=== PATIENT | female | born 1965 | race Caucasian/White ===

== ENCOUNTER 2019-05-17 17:26 | Outpatient (CLI) | payer OTHER, SELFPAY ==
--- NOTE | ~2019-05-17 | XR_ITS ---
EXAMINATION: XR chest 2V EXAM DATE: 05/17/2019 17:43 INDICATION: Bronchitis. Anterior chest pain. TECHNIQUE: Frontal and lateral projections of the chest obtained and reviewed. Comparison is made to prior examination from 02/05/2013. FINDINGS: The lungs are clear. There are no pleural effusions. The cardiomediastinal silhouette is within normal limits. There is no pneumothorax suspected. The bones and soft tissues are unremarkab le. IMPRESSION: No acute cardiopulmonary findings. Reviewed, dictated and finalized at location A.
== END 2019-05-17 17:27 | disposition home or self-care (01) ==
PROVIDERS: PCP Internal Medicine; Visit Provider Internal Medicine
DX: J40 Bronchitis, not specified as acute or chronic (principal)
CPT/HCPCS: 71046

== ENCOUNTER 2020-02-15 07:35 | Outpatient (CLI) | payer OTHER, SELFPAY ==
--- NOTE | ~2020-02-15 | DEXA_ITS ---
Bone Density Report Name: uYdi Valdivia Age: 54 Sex: Female Ethnicity: White Date of : 1965 Indication: osteopenia; hysterectomy; Referring Provider: [place] Study: Bone densitometry was performed. Exam Date: February 15, 2020 Accession number: [id number] Bone Density: Region BMD T-score Z-score Classification AP Spine (L1-L4) 0.842 -1.9 -0.7 Osteopenia Femoral Neck (Left) 0.644 -1.8 -0.7 Osteopenia Total Hip (Left) 0.740 -1.7 -0.9 Osteopenia Total Hip Bilateral Avg 0.734 -1.8 -0.9 Osteopenia Femoral Neck (Right) 0.583 -2.4 -1.3 Osteopenia Total Hip (Right) 0.727 -1.8 -1.0 Osteopenia World Health Organization criteria for BMD impression classify patients as: Normal (T-score at or above -1.0), Osteopenia (T-score between -1.0 and -2.5), or Osteoporosis (T-score at or below -2.5). 10-year Fracture Risk(1): Major Osteoporotic Fracture 9.2% Hip Fracture 1.5% Reported Risk Factors: [place] (), Neck BMD=0.583, BMI=27.6 (1) FRAX(R) Version 3.08. Fracture probability calculated for an untreated patient. Fracture probability may be lower if the patient has received treatment. Previous Exams: Region Exam Age BMD T-score BMD Change BMD Change Date g/cm2 vs Baseline vs Previous AP Spine(L1-L4) 02/15/2020 54 0.842 -1.9 -0.047(-5.2%)* -0.047(-5.2%)* 01/02/2017 51 0.889 -1.4 Total Hip(Left) 02/15/2020 54 0.740 -1.7 -0.060(-7.4%)* -0.060(-7.4%)* 01/02/2017 51 0.800 -1.2 Total Hip(Right) 02/15/2020 54 0.727 -1.8 -0.052(-6.6%)* -0.052(-6.6%)* 01/02/2017 51 0.779 -1.3 *Denotes significance at 95% confidence level, LSC for AP Spine = 0.022 g/cm2, LSC for Total Hip = 0.027 g/cm2 Clinical Information Provided by Patient: Has used the following medications: HRT (i.e. estrogen/hormone therapy), Calcium Has the following medical conditions: Hysterectomy Patient maximum height was 63.5 Menopause Age: 30 Onset of menses at age 11 Number of children 1 Impression: The patient has low bone mass, based on the Right Femoral Neck T-score. The patient has an estimated ten-year risk of hip fracture of 1.5% and an estimated ten-year risk of major fracture of 9.2%, based on the WHO FRAX algorithm. The BMD for the AP Spine(L1-L4) decreased, changing by -5.2% since the last DXA exam. The BMD for the Total Hip(Left) decreased, changing by -7.4% since the last DXA exam. The BMD for the Total Hip(Right) decreased, changing by -6.6% since
--- NOTE | ~2020-02-15 | MM_ITS ---
EXAMINATION: MM screening [facility] BI w samuel HISTORY: Screening TECHNIQUE: Craniocaudal and mediolateral oblique 3-D tomosynthesis images were obtained and synthetic 2-D images were generated. CAD analysis was submitted and interpreted. COMPARISON: Comparison to multiple prior studies sequentially, with oldest reviewed study dated 12/18. BREAST PARENCHYMAL COMPOSITION: There are scattered areas of fibroglandular density. FINDINGS: There is no evidence of suspicious mass, calcification, or architectural distortion to sugg est malignancy in either breast. There has been no suspicious interval change. IMPRESSION: 1. No mammographic evidence of malignancy. 2. Recommend routine screening mammography in one year. BI-RADS Category 1: Negative Reviewed, dictated and finalized at location A. ACTOR TENDER RAW STOCK
== END 2020-02-15 07:36 | disposition home or self-care (01) ==
LOC: ANHIMG 07:37
PROVIDERS: PCP Internal Medicine; Visit Provider Student in an Organized Health Care Education/Training Program
DX: Z12.31 Encounter for screening mammogram for malignant neoplasm of breast (principal); Z13.820 Encounter for screening for osteoporosis; M85.88 Other specified disorders of bone density and structure, other site; M85.852 Other specified disorders of bone density and structure, left thigh; M85.851 Other specified disorders of bone density and structure, right thigh
CPT/HCPCS: 77063; 77067; 77080

== ENCOUNTER 2021-03-06 14:22 | Outpatient (CLI) | payer OTHER, SELFPAY ==
--- NOTE | ~2021-03-06 | MM_ITS ---
EXAMINATION: MM screening [facility] BI w samuel HISTORY: Screening TECHNIQUE: Craniocaudal and mediolateral oblique 3-D tomosynthesis images were obtained and synthetic 2-D images were generated. CAD analysis was submitted and interpreted. COMPARISON: Comparison to multiple prior studies sequentially, with oldest reviewed study dated 12/18. BREAST PARENCHYMAL COMPOSITION: There are scattered areas of fibroglandular density. FINDINGS: There is no evidence of suspicious mass, calcification, or architectural distortion to sugg est malignancy in either breast. There has been no suspicious interval change. IMPRESSION: 1. No mammographic evidence of malignancy. 2. Recommend routine screening mammography in one year. BI-RADS Category 1: Negative Reviewed, dictated and finalized at location A. ORATE PILOT
== END 2021-03-06 14:23 | disposition home or self-care (01) ==
LOC: ANHIMG 14:23
PROVIDERS: PCP Internal Medicine; Visit Provider Nurse Practitioner
DX: Z12.31 Encounter for screening mammogram for malignant neoplasm of breast (principal)
CPT/HCPCS: 77063; 77067

== ENCOUNTER → 2021-04-18 09:19 | Outpatient (CLI) | payer OTHER, SELFPAY ==
--- NOTE | ~2021-04-18 | XR_ITS ---
XR shoulder RT min 2V DATE: 04/18/2021 09:54 INDICATION: Right shoulder pain TECHNIQUE: 5 views COMPARISON: None FINDINGS: Osteopenia. 2 we will no No fracture or dislocation, periosteal reaction or bone destruction. No abnormal calcif ication. IMPRESSION: Osteopenia Reviewed, dictated and finalized at location A. HANDLER IMPRESSION: Osteopenia
== END ==
PROVIDERS: PCP Internal Medicine; Visit Provider Nurse Practitioner
DX: M85.811 Other specified disorders of bone density and structure, right shoulder (principal)
CPT/HCPCS: 73030

== ENCOUNTER 2021-07-10 13:49 | Outpatient (CLI) | payer OTHER, SELFPAY ==
--- NOTE | 2021-07-10 | ECG_ITS ---
Measurements Intervals Telferner Rate: 58 P: 66 AL: 176 QRS: 45 QRSD: 99 T: 34 QT: 376 QTc: 369 Interpretive Statements SINUS BRADYCARDIA BORDERLINE ECG Electronically Signed On 07-10-2021 14:43:22 CDT by Shayne Perez D.O.
[2021-07-10 14:21] LABS: Anion Gap 6 mmol/L (8-16); Blood Urea Nitrogen 19 mg/dL (7-17); Calcium 9.7 mg/dL (8.4-10.2); Carbon Dioxide 28 mmol/L (22-30); Chloride 106 mmol/L (98-107); Estimated Glomerular Filt Rate > 60; Glucose 94 mg/dL (65-110); Potassium 4.1 mmol/L (3.4-5.0); Sodium 140 mmol/L (137-145)
== END 2021-07-10 13:50 | disposition home or self-care (01) ==
PROVIDERS: PCP Internal Medicine; Visit Provider Orthopaedic Surgery Hand Surgery
DX: M25.511 Pain in right shoulder (principal); R94.31 Abnormal electrocardiogram [ECG] [EKG]
CPT/HCPCS: 36415; 80048; 93005

== ENCOUNTER 2022-04-16 09:55 | Outpatient (CLI) | payer OTHER, SELFPAY ==
--- NOTE | ~2022-04-16 | XR_ITS ---
EXAMINATION: XR soft tissue neck DATE: 04/16/2022 10:10 INDICATION: Loss of voice. TECHNIQUE: 2 views of the neck soft tissues were obtained. COMPARISON: Cervical spine radiographs 12/09/2010 FINDINGS: The palatine and lingual tonsils are enlarged. The epiglottis, prevertebral soft tissues, a nd glottis are normal. IMPRESSION: 1. Enlarged palatine and lingual tonsils. Reviewed, dictated and finalized at location A. TCH PRESS OPERATOR
--- NOTE | ~2022-04-16 | MM_ITS ---
EXAMINATION: MM screening [facility] BI w samuel HISTORY: Screening mammogram TECHNIQUE: Craniocaudal and mediolateral oblique 3-D tomosynthesis images were obtained and synthetic 2-D images were generated. CAD analysis was submitted and interpreted. COMPARISON: 03/06/2021, 02/15/2020, 02/12/2019 bilateral screening mammogram examinations BREAST PARENCHYMAL COMPOSITION: There are scattered areas of fibroglandular density. FINDINGS: There is no evidence of suspicious mass, calcification, or architectural distortion to sugg est malignancy in either breast. There has been no suspicious interval change. IMPRESSION: 1. No mammographic evidence of malignancy. 2. Recommend routine screening mammography in one year. BI-RADS Category 1: Negative Reviewed, dictated and finalized at location A. LEDGE ENGINEER
--- NOTE | ~2022-04-16 | DEXA_ITS ---
Bone Density Report Name: MARI RODRIGUEZ Age: 56 Sex: Female Ethnicity: White Date of : 1965 Indication: postmenopausal; screening for osteoporosis; height loss; hysterectomy; Referring Provider: LESLEY VEE Study: Bone densitometry was performed. Exam Date: April 16, 2022 Accession number: [id number] Bone Density: Region BMD T-score Z-score Classification AP Spine(L1-L4) 0.836 -1.9 -0.6 Osteopenia Femoral Neck (Left) 0.586 -2.4 -1.2 Osteopenia Total Hip (Left) 0.733 -1.7 -0.9 Osteopenia Femoral Neck (Right) 0.546 -2.7 -1.5 Osteoporosis Total Hip (Right) 0.688 -2.1 -1.2 Osteopenia Total Hip Mean 0.710 -1.9 -1.1 Osteopenia World Health Organization criteria for BMD impression classify patients as: Normal (T-score at or above -1.0), Osteopenia (T-score between -1.0 and -2.5), or Osteoporosis (T-score at or below -2.5). 10-year Fracture Risk: FRAX not reported because: Some T-score for Spine Total or Hip Total or Femoral Neck at or below -2.5 Treated for osteoporosis Clinical Information Provided by Patient: Is being treated for osteoporosis Has used the following medications: Vitamin D, Calcium Has the following medical conditions: Hysterectomy Patient maximum height was 63.5 Menopause Age: 30 Drinks caffeinated beverages Onset of menses at age 13 Number of children 1 Impression: The patient has osteoporosis, based on the Right Femoral Neck T-score. Discussion: It is important to ask patients whether they are taking their medications and to encourage continued and appropriate compliance with their osteoporosis therapies to reduce fracture risk. It is also important to review their risk factors and encourage appropriate calcium and vitamin D intakes, exercise, fall prevention and other lifestyle measures. Follow-Up: Consider a repeat BMD and Vertebral Fracture Assessment (VFA) exam in 2 years or sooner if medically necessary, to reassess this patient's status. Reported by: BOBBI on 04/16/2022 8:33:00 AM. Reviewed, dictated and finalized at location AKarolyn PROCTOR
== END 2022-04-16 09:56 | disposition home or self-care (01) ==
PROVIDERS: PCP Internal Medicine; Referring Provider Obstetrics & Gynecology; Visit Provider Nurse Practitioner
DX: Z12.31 Encounter for screening mammogram for malignant neoplasm of breast (principal); Z78.0 Asymptomatic menopausal state; R49.0 Dysphonia; J35.1 Hypertrophy of tonsils; M85.89 Other specified disorders of bone density and structure, multiple sites; M81.0 Age-related osteoporosis without current pathological fracture
CPT/HCPCS: 70360; 77063; 77067; 77080

== ENCOUNTER 2022-06-18 14:30 | Outpatient (RCR) | payer OTHER, SELFPAY ==
--- NOTE | 2022-06-12 16:22 | STOPEVAL1 ---
Assessment and note entered by Angelica West, FLOAT NURSE Evaluation Information Assessment Status Evaluation Diagnosis Dysphonia Subjective Information Patient reported that in January,, she developed vocal hoarseness and raspiness, descriving both symptoms at a moderate level, sometimes improved, sometimes worse. Speaks frequently throughout the day. Reported Pain Level Pain Score 0: Self Report Assessment ST Clinical Summary VOICE EVALUATION This patient was seen for a Voice Evaluation at the request of her physician. Patient reported noticing her voice had become hoarse and raspy just prior to beginning symptoms of a cold in January 2022. She reported that cold symptoms passed but that her vocal hoarseness did not. Medicines for allergies and gastroesophageal reflux were tried but unable to alleviate voice symptoms. An ENT found structures to be normal and recommended Speech Therapy. Today the patient exhibited most voicing skills to be within normal limits other than vocal loudness was judged to be slightly higher than expected for the normal range in the therapy room. (normal range is 68-74 decibels and patient loudness was between 74-76 decibels for oral reading and conversation. Patient was instructed in the use of a vocal hygiene program, suggestions for reducing gastroesophageal reflux in case that is contributing to her voice disorder, and then relaxation and breathing techniques to assist with decreasing voice disorder symptoms. Patient will be seen once weekly for four weeks to address instruction for easy speech/reduced loudness and stress while speaking and to reinforce home program. Patient voiced understanding and was in agreement with recommendations. Thank you for this referral. Plan of Care Interventions Treatment of Voice ST Services Indicated Yes Treatment Frequency and 1xwk/4wks Duration These treatments will address the objective and functional deficits as def
--- NOTE | 2022-06-27 15:37 | PCSTNOTE ---
Therapist called and left message for patient to determine if patient will be resuming care after cancelling this week; awaiting response.
--- NOTE | 2022-07-03 15:31 | STOPDC ---
Assessment and note entered by Angelica West SENIOR ACCOUNT REPRESENTATIVE Evaluation Information Assessment Status Discharge - Pt Not Presen Assessment ST Clinical Summary DISCHARGE SUMMARY This patient was seen for a Voice Evaluation on and then one follow up treatment a week later. She scheduled for a third visit but then canceled and did not return phone call to discuss scheduling more treatments or discharge. Patient is being discharged with instructions for vocal hygiene program and exercises to reduce the stress and tension on the vocal cords. Patient voiced understanding but it is not known if she has been/is following through with the program. Plan of Care ST Services Indicated No
== END 2022-07-04 09:30 | disposition home or self-care (01) ==
LOC: ANHST 14:30
PROVIDERS: PCP Internal Medicine; Visit Provider Otolaryngology
DX: R49.0 Dysphonia (principal)
CPT/HCPCS: 92507; 92524

== ENCOUNTER 2022-08-09 08:58 | Outpatient (CLI) | payer OTHER, SELFPAY ==
[2022-08-09 10:22] LABS: Alanine Aminotransferase 31 U/L (6-35); Albumin Level 4.7 g/dL (3.5-5.1); Alkaline Phosphatase 99 U/L (38-126); Anion Gap 7 mmol/L (8-16); Aspartate Amino Transferase 30 U/L (14-36); Bilirubin,Total 0.6 mg/dL (0.2-1.3); Blood Urea Nitrogen 20 mg/dL (7-17); Calcium 9.4 mg/dL (8.4-10.2); Carbon Dioxide 28 mmol/L (22-30); Chloride 104 mmol/L (98-107); Cholesterol 227 mg/dL (0-200); Estimated Glomerular Filt Rate > 60; Glucose 90 mg/dL (65-110); HDL Direct 58 mg/dL; Potassium 3.8 mmol/L (3.4-5.0); Sodium 139 mmol/L (137-145); Triglycerides 118 mg/dL (<150)
[2022-08-09 10:33] LABS: LDL Cholesterol Direct 126 mg/dL
== END 2022-08-09 08:59 | disposition home or self-care (01) ==
LOC: ANHLAB 08:59
PROVIDERS: PCP Family Medicine; Visit Provider Nurse Practitioner
DX: E78.5 Hyperlipidemia, unspecified (principal); I10 Essential (primary) hypertension; Z79.899 Other long term (current) drug therapy
CPT/HCPCS: 36415; 80053; 80061

== ENCOUNTER 2022-10-19 09:30 | Emergency (ER) | payer OTHER, SELFPAY ==
[2022-10-19 09:40] VITALS: BP 116/94; PULSE 81; RESP 16; TEMP 37.1; O2SAT 100
--- NOTE | 2022-10-19 09:48 | ED.URI ---
HPI - URI/Sore Throat General Chief Complaint: Upper Respiratory Infection Stated Complaint: + COVID Time Seen by Provider: 10/19/22 09:55 Source: patient and RN notes reviewed Mode of arrival: ambulatory Limitations: no limitations History of Present Illness HPI Narrative: 57-year-old female presents with concern for taking a positive COVID test at home. She reports cough, fatigue, nasal congestion, rhinorrhea. She reports she was exposed to her friend with COVID. She reports she has been taking [id number] cold medicine. She would like to be prescribed an antiviral, she took paxlovid last year with success. MD elicited complaint: cough Related Data Allergies Allergy/AdvReac Type Severity Reaction Status Date / Time clindamycin Allergy Unknown Chest pain Verified 10/19/22 09:44 Quinolones Allergy Unknown Unknown Verified 10/19/22 09:44 Review of Systems Review of Systems: CONSTITUTIONAL: Reports malaise. Denies chills, sweats, or fever. EYES: Denies visual changes, redness, or discharge. ENT: Reports rhinorrhea, congestion CARDIOVASCULAR: Denies chest pain, palpitations, or edema. RESPIRATORY: Reports cough. Denies dyspnea. GASTROINTESTINAL: Denies abdominal pain, nausea, vomiting, diarrhea SKIN: Denies rash or itching. MUSCULOSKELETAL: Reports myalgia. NEUROLOGIC: Reports headache. All systems reviewed & are unremarkable except as noted in HPI and below PMFSH Past Medical History Medical History (Updated 10/19/22 @ 10:25 by Sheryl Tapia NP) COVID-19 Migraines Osteoporosis Screening for lipid disorders Torn rotator cuff Vaginal delivery 09/26/83 Full term female 5lbs 2oz Surgical History Surgical History H/O dilation and curettage H/O myomectomy H/O: hysterectomy History of colposcopy History of cryosurgery S/P rotator cuff repair Right 08/29/21 Family History Family History Father Hypertension Family history of diabetes mellitus in first degree relative Mother Hypertension Family history of diabetes mellitus in first degree relative Sibling Hypertension Family history of diabetes mellitus in first degree relative Grandparent Hypertension Cerebrovascular accident Acute myocardial infarction Other Asthma Other Diabetes mellitus Family history of heart disease in male family member before age 55 Social History Social History Smoking status: Never smoker Second hand tobacco smoke exposure: No Alcohol intake: current Drinks per week: 2 Alcohol use details: occasionally Substance use: never Substance use type: does not use Lack of Transportation: No Lack of Food: Never True Current Housing: I Have Housing Concerned About Future Housing: No Difficulty Paying Gas/Electric Bills: No Difficulty Paying for Meds: No Currently Unemployed: No Education: Trade/Vocational Certificate Difficulty w/ Childcare or Family Care: No Living arrangements: with roommate(s) Additional living arrangements comments: Boyfriend Occupation/Education: occupation Gender identity (if verbalized by the patient): Female Sexual Orientation (if Verbalized by the Patient): Straight or Heterosexual Spiritual care concerns: No Comments At time of signature, agree with nursing past medical, surgical, social and family history. There is no relevant family history pertinent to the presenting complaint Exam Narrative: GENERAL: Well-appearing, well-nourished, and in no acute distress. HEAD: Normocephalic EYES: PERRLA, conjunctivae clear ENT: Nares clear, turbinates edematous and erythematous, clear discharge. Mucous membranes moist. TM pearly rosa with sharp light reflex bilaterally; no tragal tenderness. Oropharynx not erythematous without lesions. Tonsils not enlarged and without exudate, no droo
== END 2022-10-19 10:32 | disposition home or self-care (01) ==
PROVIDERS: Emergency Provider Nurse Practitioner; PCP Internal Medicine
DX: U07.1 COVID-19 (principal); M81.0 Age-related osteoporosis without current pathological fracture
CPT/HCPCS: 99213; G0463

== ENCOUNTER 2023-04-24 08:17 | Outpatient (CLI) | payer OTHER, SELFPAY ==
--- NOTE | ~2023-04-24 | MM_ITS ---
EXAMINATION: MM screening [facility] BI w samuel HISTORY: Screening mammogram TECHNIQUE: Craniocaudal and mediolateral oblique 3-D tomosynthesis images were obtained and synthetic 2-D images were generated. CAD analysis was submitted and interpreted. COMPARISON: 04/16/2022, 03/06/2021, 02/15/2020 BREAST PARENCHYMAL COMPOSITION:Not Dense. There are scattered areas of fibroglandular density. FINDINGS: No suspicious mass, calcification, or architectural distortion are identified in either sherwin ast to suggest malignancy. There has been no suspicious interval change. IMPRESSION: No mammographic evidence of malignancy. Recommend routine screening mammography in one year. BI-RADS Category 1: Negative Reviewed, dictated and finalized at location . T KILN OPERATOR
== END 2023-04-24 08:18 | disposition home or self-care (01) ==
LOC: ANHIMG 08:19
PROVIDERS: PCP Internal Medicine; Visit Provider Nurse Practitioner
DX: Z12.31 Encounter for screening mammogram for malignant neoplasm of breast (principal)
CPT/HCPCS: 77063; 77067

== ENCOUNTER 2023-07-18 07:03 | Outpatient (CLI) | payer OTHER, SELFPAY ==
[2023-07-18 07:17] LABS: Hematocrit 40.1 % (35.0-49.0); Hemoglobin 13.2 g/dL (12.0-15.0); Mean Corpuscular HGB Conc 32.9 g/dL (32-36); Mean Corpuscular Volume 94.1 fL (78.0-102.0); Mean Platelet Volume 10.8 fl (9.2-11.8); Platelet Count Result 266 K/mm3 (150-420); Red Blood Count 4.26 M/mm3 (4.20-5.40); Red Cell Distribution Width 12.9 % (11.6-14.4); White Blood Count 7.7 K/mm3 (4.8-10.8)
[2023-07-18 08:04] LABS: Alanine Aminotransferase 29 U/L (14-59); Albumin Level 3.7 g/dL (3.4-5.0); Alkaline Phosphatase 86 U/L (46-116); Anion Gap 9 mmol/L (4-12); Aspartate Amino Transferase 19 U/L (15-37); Bilirubin,Total 0.4 mg/dL (0.00-1.00); Blood Urea Nitrogen 20 mg/dL (7-18); Calcium 9.4 mg/dL (8.5-10.1); Carbon Dioxide 29 mmol/L (21-32); Chloride 107 mmol/L (98-108); Cholesterol 194 mg/dL (0-200); Estimated Glomerular Filt Rate > 60; Glucose 91 mg/dL (70-99); HDL Direct 56 mg/dL (40-60); LDL Cholesterol Calculated 116 mg/dL (<130); Osmolality Calculated 302 mOsm/kg (285-295); Sodium 145 mmol/L (136-145); Thyroid Stimulating Hormone 1.73 uIU/mL (0.36-3.74); Triglycerides 110 mg/dL (0-150)
== END 2023-07-18 07:04 | disposition home or self-care (01) ==
LOC: CHSLAB 07:06
PROVIDERS: PCP Nurse Practitioner; Visit Provider Nurse Practitioner
DX: E78.5 Hyperlipidemia, unspecified (principal); Z79.899 Other long term (current) drug therapy
CPT/HCPCS: 36415; 80053; 80061; 84443; 85027

== ENCOUNTER 2023-11-21 04:31 | Day surgery (SDC) | payer OTHER, SELFPAY ==
[2023-11-03 10:05] VITALS: BMI 28.5
--- NOTE | 2023-11-20 10:46 | WPDANESEPPF ---
Anes - Initial Pre Proc Eval Procedure: Operation Date: 11/21/23 07:30 Proposed Procedures p Screening Colonoscopy - Rj Bales MD Date/Time: 11/20/23 10:46 Surgeon: Rj Bales MD Pre Op Diagnosis: Neoplasm screening Patient Data Age: 58 Gender: F Height: 1.6 m Weight: 73 kg Allergies Allergy/AdvReac Type Severity Reaction Status Date / Time clindamycin Allergy Unknown Chest pain Verified 11/21/23 06:15 Quinolones Allergy Unknown Unknown Verified 11/21/23 06:15 Home Medications Medication Instructions Recorded Confirmed Type alendronate 70 mg tablet 70 mg PO WEEKLY #12 tabs 05/29/23 11/21/23 Rx estradiol 0.5 mg tablet 0.5 mg PO .COMPLEX #45 tabs 07/25/23 11/21/23 Rx valsartan 320 See Rx Instructions .Route 07/25/23 11/21/23 Rx mg-hydrochlorothiazide 12.5 mg .COMPLEX #90 tabs tablet multivit with minerals-iron 18 1 tablet PO DAILY 11/03/23 11/21/23 History mg-folic ac 400 mcg-vit K 25 mcg tablet (Adults Multivitamin) Patient hx anesthesia problems: none Family hx anesthesia problems: none Results Review: All pre-operative results and documents have been reviewed as part of the pre-operative evaluation. [facility] Past Medical History Medical History (Updated 11/20/23 @ 10:47 by Roger Delgado, ) Benign essential hypertension COVID-19 Hyperlipidemia Migraines Osteoporosis Screening for lipid disorders Torn rotator cuff Vaginal delivery 09/26/83 Full term female 5lbs 2oz Surgical History Surgical History H/O dilation and curettage H/O myomectomy H/O: hysterectomy History of colposcopy History of cryosurgery S/P rotator cuff repair Right 08/29/21 Family History Family History Father Hypertension Family history of diabetes mellitus in first degree relative Mother Hypertension Family history of diabetes mellitus in first degree relative Sibling Hypertension Family history of diabetes mellitus in first degree relative Grandparent Hypertension Cerebrovascular accident Acute myocardial infarction Other Asthma Other Diabetes mellitus Family history of heart disease in male family member before age 55 Social History Social History Smoking status: Never smoker Second hand tobacco smoke exposure: No Alcohol intake: current Drinks per week: 1 Alcohol use details: occasionally Substance use: never Substance use type: does not use Lack of Transportation: No Lack of Food: Never True Current Housing: I Have Housing Concerned About Future Housing: No Difficulty Paying Gas/Electric Bills: No Difficulty Paying for Meds: No Currently Unemployed: No Education: Trade/Vocational Certificate Difficulty w/ Childcare or Family Care: No Living arrangements: with family Additional living arrangements comments: Boyfriend Occupation/Education: occupation Gender identity (if verbalized by the patient): Female Sexual Orientation (if Verbalized by the Patient): Straight or Heterosexual Spiritual care concerns: No Anes - Eval Final PreProcedure Day of Procedure 11/20/23 10:46 Patient weight: overweight Heart: regular rate and rhythm Lungs: clear to auscultation and normal air movement Airway: Mallampati scale class II Neurological: alert and oriented Last oral intake: >/= 8 hours ASA classification: II Emergent: no Anesthetic plan: proceed Anesthesia type and monitoring: general GIVS and standard monitoring Results Review: All pre-operative results and documents have been reviewed as part of the pre-operative evaluation. Informed Consent: The patient's anesthetic plan and its attendant risks and benefits were discussed with the patient/family/POA. Questions were solicited and answers provided to the satisfaction of the patient/famil
[2023-11-21 06:12] VITALS: BP 127/87; PULSE 73; RESP 18; TEMP 36.1; O2SAT 99; BMI 28.2
[2023-11-21] MEDS: LACTATED RINGERS 1,000 ML 150 ML IV CONT (06:28)
--- NOTE | 2023-11-21 07:37 | PM.HPGS ---
History of Present Illness History of Present Illness Consent: Risks, benefits, and alternatives have been discussed and questions answered. Patient agrees to proceed with procedure. Chief complaint: Neoplasm screening Narrative: Yudi Daugherty is a 58 year old female here for screening colonoscopy, last one 10 years ago Review of Systems Review of Systems: All systems reviewed & are unremarkable except as noted in HPI and below PMFSH Past Medical History Medical History (Updated 11/20/23 @ 10:47 by Roger Delgado, DO) Benign essential hypertension COVID-19 Hyperlipidemia Migraines Osteoporosis Screening for lipid disorders Torn rotator cuff Vaginal delivery 09/26/83 Full term female 5lbs 2oz Surgical History Surgical History H/O dilation and curettage H/O myomectomy H/O: hysterectomy History of colposcopy History of cryosurgery S/P rotator cuff repair Right 08/29/21 Family History Family History Father Hypertension Family history of diabetes mellitus in first degree relative Mother Hypertension Family history of diabetes mellitus in first degree relative Sibling Hypertension Family history of diabetes mellitus in first degree relative Grandparent Hypertension Cerebrovascular accident Acute myocardial infarction Other Asthma Other Diabetes mellitus Family history of heart disease in male family member before age 55 Social History Social History Smoking status: Never smoker Second hand tobacco smoke exposure: No Alcohol intake: current Drinks per week: 1 Alcohol use details: occasionally Substance use: never Substance use type: does not use Lack of Transportation: No Lack of Food: Never True Current Housing: I Have Housing Concerned About Future Housing: No Difficulty Paying Gas/Electric Bills: No Difficulty Paying for Meds: No Currently Unemployed: No Education: Trade/Vocational Certificate Difficulty w/ Childcare or Family Care: No Living arrangements: with family Additional living arrangements comments: Boyfriend Occupation/Education: occupation Gender identity (if verbalized by the patient): Female Sexual Orientation (if Verbalized by the Patient): Straight or Heterosexual Spiritual care concerns: No Meds Home Medications and Allergies Home Medications Medication Instructions Recorded Confirmed Type alendronate 70 mg tablet 70 mg PO WEEKLY #12 tabs 05/29/23 11/21/23 Rx estradiol 0.5 mg tablet 0.5 mg PO .COMPLEX #45 tabs 07/25/23 11/21/23 Rx valsartan 320 See Rx Instructions .Route 07/25/23 11/21/23 Rx mg-hydrochlorothiazide 12.5 mg .COMPLEX #90 tabs tablet multivit with minerals-iron 18 1 tablet PO DAILY 11/03/23 11/21/23 History mg-folic ac 400 mcg-vit K 25 mcg tablet (Adults Multivitamin) Allergies Allergy/AdvReac Type Severity Reaction Status Date / Time clindamycin Allergy Unknown Chest pain Verified 11/21/23 06:15 Quinolones Allergy Unknown Unknown Verified 11/21/23 06:15 Vital Signs Vital Signs - 24 hr 11/21/23 06:12 Temperature 97.0 F L Pulse Rate 73 Respiratory Rate 18 Blood Pressure 127/87 Pulse Oximetry 99 Oxygen Delivery Room Air Exam Const: General: comfortable and no acute distress HENMT: Face/Nose/Sinus: Normal nares present Eyes: General: appearance normal, both eyes and all related structures Neck: Neck: no JVD Resp: Auscultation: clear to auscultation bilaterally Cardio: Rate: regular rate Rhythm: regular rhythm GI: Inspection: non-distended GI Palp: Yes Soft to palpation Skin: General skin exam: normal color Neuro: General: gait normal Speech: normal speech Extrem: General: normal to inspection Psych: Mental Status: mental status grossly normal Assessment and Plan Assessment and plan (1)
[2023-11-21 07:51] VITALS: BP 103/67; PULSE 58; RESP 13; O2SAT 98
[2023-11-21 08:01] VITALS: BP 109/82; PULSE 57; RESP 24; O2SAT 100
[2023-11-21 08:11] VITALS: BP 121/56; PULSE 55; RESP 21; O2SAT 100
== END 2023-11-21 08:14 | disposition home or self-care (01) ==
PROVIDERS: PCP Internal Medicine; Visit Provider Internal Medicine Gastroenterology
PROC: 0DJD8ZZ Inspection of Lower Intestinal Tract, Via Natural or Artificial Opening Endoscopic (ICD-10-PCS; CPT 45378; principal; 2023-11-21 07:30)
DX: Z12.11 Encounter for screening for malignant neoplasm of colon (principal); K57.30 Diverticulosis of large intestine without perforation or abscess without bleeding; K64.8 Other hemorrhoids; E78.5 Hyperlipidemia, unspecified; I10 Essential (primary) hypertension; M81.0 Age-related osteoporosis without current pathological fracture
CPT/HCPCS: 45378; J2704; J7120

== ENCOUNTER 2024-05-13 15:51 | Outpatient (CLI) | payer OTHER, SELFPAY ==
--- NOTE | ~2024-05-13 | DEXA_ITS ---
Bone Density Report Name: MARI RODRIGUEZ Age: 58 Sex: Female Ethnicity: White Date of : 1965 Indication: osteopenia; monitoring treatment; height loss; hysterectomy; Referring Provider: SELENA NANCE Study: Bone densitometry was performed. Exam Date: May 13, 2024 Accession number: [id number] Bone Density: Region BMD T-score Z-score Classification AP Spine(L1-L4) 0.859 -1.7 -0.3 Osteopenia Femoral Neck (Left) 0.608 -2.2 -0.9 Osteopenia Total Hip (Left) 0.785 -1.3 -0.3 Osteopenia Femoral Neck (Right) 0.577 -2.4 -1.1 Osteopenia Total Hip (Right) 0.747 -1.6 -0.6 Osteopenia Total Hip Mean 0.766 -1.5 -0.5 Osteopenia World Health Organization criteria for BMD impression classify patients as: Normal (T-score at or above -1.0), Osteopenia (T-score between -1.0 and -2.5), or Osteoporosis (T-score at or below -2.5). 10-year Fracture Risk: FRAX not reported because: Treated for osteoporosis Previous Exams: Region Exam Age BMD T-score BMD Change BMD Change Date g/cm2 vs Baseline vs Previous AP Spine (L1-L4) 05/13/2024 58 0.859 -1.7 -0.029 (-3.3%) 0.023 (2.7%)# 04/16/2022 56 0.836 -1.9 -0.052 (-5.9%) -0.006 (-0.7%) 02/15/2020 54 0.842 -1.9 -0.047 (-5.2%) -0.047 (-5.2%) 01/02/2017 51 0.889 -1.4 Total Hip(Left) 05/13/2024 58 0.785 -1.3 -0.015 (-1.9%) 0.052 (7.1%)# 04/16/2022 56 0.733 -1.7 -0.067 (-8.4%) -0.008 (-1.0%) 02/15/2020 54 0.740 -1.7 -0.060 (-7.4%) -0.060 (-7.4%) 01/02/2017 51 0.800 -1.2 Total Hip(Right) 05/13/2024 58 0.747 -1.6 -0.031 (-4.0%) 0.059 (8.6%)# 04/16/2022 56 0.688 -2.1 -0.091 (-11.7% -0.039 (-5.4%) 02/15/2020 54 0.727 -1.8 -0.052 (-6.6%) -0.052 (-6.6%) 01/02/2017 51 0.779 -1.3 *Denotes significance at 95% confidence level, LSC for AP Spine = 0.022 g/cm2, LSC for Total Hip = 0.027 g/cm2 # Denotes dissimilar scan types or analysis methods Clinical Information Provided by Patient: Is being treated for osteoporosis Has used the following medications: Fosamax (i.e. alendronate), Vitamin D, Calcium Has the following medical conditions: Hysterectomy Patient maximum height was 63.5 Menopause Age: 30 Drinks caffeinated beverages Onset of menses at age 13 Number of children 1 Impression: The patient has low bone mass, based on the Right Femoral Neck T-score. No significant bone loss was observed. Discussion: PATIENT UNDER TREATMENT WITH NO SIGNIFICANT BMD LOSS SINCE LAST EXAM. In an untreated patient, BMD typically declines with age. A lack of decline or gain is usually a sign that treatment is efficacious and fracture risk is reduced. It is important to ask patients whether they are taking their medications and to encourage continued and appropriate compliance with their osteoporosis therapies to reduce fracture risk. It is also important to review their risk factors and encourage appropriate calcium and vitamin D intakes, exercise, fall prevention and other lifestyle measures. Follow-Up: Consider a repeat BMD and Vertebral Fracture Assessment (VFA) exam in 2 years or sooner if medically necessary, to reassess this patient's status. Reported by: HAY on 05/13/2024 4:33:00 PM. Reviewed, dictated and finalized at location A. [facility]
--- NOTE | ~2024-05-13 | MM_ITS ---
EXAMINATION: MM screening nallely BI w samuel HISTORY: Screening TECHNIQUE: Craniocaudal and mediolateral oblique 3-D tomosynthesis images were obtained and synthetic 2-D images were generated. CAD analysis was submitted and interpreted. COMPARISON: 04/24/2023 dating back to 02/15/2020 BREAST PARENCHYMAL COMPOSITION: There are scattered areas of fibroglandular density. FINDINGS: Punctate calcifications are detected bilaterally, stable and benign in appearance. Stable parenchymal pattern without suspicious microcalcifications, architectural distortion, discrete masses or significant asymmetry. IMPRESSION: 1. No mammographic evidence of malignancy. 2. Recommend routine screening mammography in one year. CHEST RADIOGRAPH, PA AND LATERAL CLINICAL HISTORY: Z02.16 - Encounter for screening mammogram for malignant ... . COMPARISON: None available TECHNIQUE: PA and lateral views of the chest. FINDINGS The cardiomediastinal silhouette is unremarkable. The lungs are clear. Visualized osseous structures and soft tissues are unremarkable. IMPRESSION: No focal infiltrate or effusion. Reviewed, dictated and finalized at location A. IMPRESSION: 1. No mammographic evidence of malignancy. 2. Recommend routine screening mammography in one year. CHEST RADIOGRAPH, PA AND LATERAL CLINICAL HISTORY: Z12.31 - Encounter for screening mammogram for malignant ... . COMPARISON: None available TECHNIQUE: PA and lateral views of the chest. FINDINGS The cardiomediastinal silhouette is unremarkable. The lungs are clear. Visualized osseous structures and soft tissues are unremarkable.
--- OUTSIDE RECORDS SUMMARY | 2024-05-13 16:22 | XMS_ITS | Clinical Summary ---
Author Organization [facility] Address [address] [place] [address] Care Team Providers Care Tax Lawyer Name Role Phone No, Physician Primary Care Provider [phone] Jovanny Salinas MD Unavailable [phone] Allergies Active Allergy Reactions Criticality Noted Date Comments Clindamycin Shortness of breath High 04/23/2023 Medications estradioL (ESTRACE) 0.5 mg tablet TAKE 1 TABLET BY MOUTH EVERY 48 HOURS Active valsartan-hydro chlorothiazide (DIOVAN-HCT) 320-12.5 mg per tablet Take 1 tablet by mouth daily Active meloxicam (MOBIC) 15 mg tablet Take 1 tablet (15 mg total) by mouth daily with breakfast Take 1 daily with food 30 tablet Active Active Problems Problem Noted Date Diagnosed Date Weight increased 03/22/2024 Partial thickness rotator cuff tear 10/09/2021 Tear of right rotator cuff 09/18/2021 Pain in joint of right shoulder 05/16/2021 Encounters Date Type Department Care Team Description 04/27/2024 9:15 AM CDT Office Visit [facility] Orthopaedic Surgery [address] [place] [address] 2nd Floor [address] [place] [address] Zane Porter PA Adhesive capsulitis of left shoulder (Primary Dx) 03/22/2024 9:00 AM FUNCTIONAL ANALYST Office Visit [facility] Orthopaedic Surgery [address] [place] [address] Floor [address] [place] [address] Zane Porter PA Adhesive capsulitis of left shoulder (Primary Dx); Left shoulder pain, unspecified chronicity 03/22/2024 8:19 AM FUNCTIONAL ANALYST - 03/22/2024 11:59 PM FUNCTIONAL ANALYST Hospital Encounter [facility] [address] [place] [address] Left shoulder pain, unspecified chronicity Discharge Disposition: Discharge to home or self care from Last 3 Months Surgical History Surgery Date Site/Laterality Comments KNEE ARTHROSCOPY W/ LATERAL RELEASE 2022 HYSTERECTOMY 1995 Medical History Medical History Date Comments Osteoporosis April, Hypertension 2005 Family History Medical History Relation Name Comments Arthritis Brother Gunner Rodriguez Asthma Daughter Olimpia Duong Stroke Maternal Grandmother Clarendon Motley Arthritis Mother Angelica Rodriguez Hearing loss Mother Angelica Rodriguez Hypertension Mother Angelica Rodriguez Heart attack Paternal Grandfather Moy Rodriguez Hypertension Paternal Grandmother Karl Kirklandlroy Relation Name Status Comments Brother Gunner Rodriguez Daughter Olimpia Duong Maternal Grandmother Caryn Motley Mother Angelica Silvestreoy Paternal Grandfather Moy Kirklandlroy Paternal Grandmother Karl Kirklandlroy Social History Tobacco Use Types Packs/Day Years Used Date Smoking Tobacco: Never Smokeless Tobacco: Never Tobacco Cessation:Counseling Given: Not Answered Comments Unknown Sex and Gender Information Value Date Recorded Sex Assigned at Not on file Legal Sex Female 7:51 AM FUNCTIONAL ANALYST Gender Identity Not on file Sexual Orientation Not on file Obstetrics History Last Filed Vital Signs Vital Sign Reading Time Taken Comments Blood Pressure - - Pulse - - Temperature - - Respiratory Rate - - Oxygen Saturation - - Inhaled Oxygen Concentration - - Weight 72.6 kg (160 lb) 04/27/2024 9:11 AM CDT Height 160 cm (5' 3 ) 04/27/2024 9:11 AM CDT Body Mass Index 28.34 04/27/2024 9:11 AM CDT Plan of Treatment Health Maintenance Due Date Last Done Comments Breast Cancer Screening-Mammogram 1965 Colon Cancer Screening-Colonoscopy 1965 Depression Screening 1965 Hepatitis C Screening 1965 DTaP/Tdap/Td Vaccine (1 - Tdap) 09/29/1974 Hepatitis B Screening 09/29/1981 Regular Well Visit/Exam 18-64 09/29/1981 Zoster Vaccine (1 of 2) 09/29/2013 Influenza Vaccine (#1) 2023 2, 12/19/2020, 11/22/2019, Additional history exists Pneumococcal vaccine <65 Aged Out No longer eligible based on patient's age to complete this topic Procedures Procedure Name Priority Date/Time Associated Diagnosis Comments XR SHOULDER LEFT 2 OR MORE VIEWS Schedule Routine, Read Routine (OP Routine) 03/22/2024 8:29 AM FUNCTIONAL ANALYST Left shoulder pain, unspecified chronicity from Last 3 Months Results * XR Shoulder Left 2 or More Views (03/22/2024 8:29 AM FUNCTIONAL ANALYST) Anatomical Region Laterality Modality Upper Extremities, Shoulder Left Comp uted Radiography 03/22/2024 8:41 AM FUNCTIONAL ANALYST Impressions 03/22/2024 8:41 AM FUNCTIONAL ANALYST Mild left acromioclavicular osteoarthritis. Electronically signed by: Anmol Paez MD Narrative 03/22/2024 8:41 AM FUNCTIONAL ANALYST EXAMINATION: XR SHOULDER LEFT 2 OR MORE VIEWS HISTORY: Left shoulder pain FINDINGS: No comparison. Alignment is normal. No fracture or dislocation. The glenohumeral joint is normal. Mild left acromioclavicular osteoarthritis. Procedure Note Anmol Paez MD - 03/22/2024 EXAMINATION: XR SHOULDER LEFT 2 OR MORE VIEWS HISTORY: Left shoulder pain FINDINGS: No comparison. Alignment is normal. No fracture or dislocation. The glenohumeral joint is normal. Mild left acromioclavicular osteoarthritis. IMPRESSION: Mild left acromioclavicular osteoarthritis. Electronically signed by: Anmol Paez MD Zane ALMAZAN IM XR PROCEDURES Final Result from Last [address] [place] [address] [place] [address] [employer] Care Teams Tax Lawyer Relationship Specialty Start Date End Date No, Physician PCP - General 04/23/23 Jovanny Salinas MD [address] [facility] [address] [place] [address] 04/23/23
--- OUTSIDE RECORDS SUMMARY | 2024-05-13 16:22 | XMS_ITS | Clinical Summary ---
Author Organization [facility] Address [address] [place] [address] Care Team Providers Care Patient Flow Coordinator Name Role Phone Jovanny Salinas MD Primary Care Provider [phone] Source Comments [facility],non-owned Affiliates and Associated Physician Practices is amultiple site organization consisting of ambulatory clinics and hospital sitesin [place], [place], [place] and [place]. This disclosure is being madepursuant to the Care Everywhere program and may not contain all information available regarding this patient. Last updated 17.[facility] Immunizations Name Administration Dates Next Due INFLUENZA VACCINE, QUADR. (F LUZONE; FLULAVAL; FLUARIX; AFLURIA QUADRIVALENT; 6MO+), 0.5 ML (IIV4) 11/22/2019,12/21/2018 Social History Tobacco Use Types Packs/Day Years Used Date Smoking Tobacco: Never Assessed Sex and Gender Information Value Date Recorded Sex Assigned at Not on file Gender Identity Not on file Sexual Orientation Not on file Plan of Treatment Health Maintenance Due Date Last Done Comments COLOGUARD (AGES 45-75) - COL ON CA SCREENING 1965 COLON MONITORING 1965 COLONOSCOPY - COLON CA SCREENING 1963 CT COLONOGRAPHY - COLON CA SCREENING 1965 Colorectal Cancer Screening 1965 FIT - COLON CA SCREENING 1963 FLEX SIG - COLON CA SCREENING 1963 LIPID TESTING 1965 MAMMOGRAM 1965 PAP SMEAR 1963 HIV SCREENING 09/29/1978 HEPATITIS C SCREENING 09/25/1981 DTAP/TDAP/TD VACCINES (1 - Tdap) 09/29/1982 PNEUMOCOCCAL VACCINE 50+ (1 of 1 - PCV) 09/29/2013 ZOSTER VACCINE (1 of 2) 09/29/2013 COVID-19 VACCINE (1 - 2023-2 5 season) 2023 INFLUENZA VACCINE (#1) 2023 0, 12/21/2018 DEPRESSION SCREENING 02/18/2024 Respiratory Syncytial Virus (RSV) Vaccine Pt: or over 60 yrs (1 - 1-dose 75+ series) 09/29/2038 HEPATITIS B VACCINE Aged Out No longe r eligible based on patient's age to complete this topic HIB VACCINE Aged Out No longer eligi ble based on patient's age to complete this topic HPV VACCINE Aged Out No longer eligi ble based on patient's age to complete this topic MENINGOCOCCAL (Group B) VACCINE SHARED DECISION-MAKING Aged Out No longer eligible based on patient's age to complete this topic MENINGOCOCCAL GROUPS A/C/Y/W VACCINE Aged Out No longer eligible b ased on patient's age to complete this topic PNEUMOCOCCAL VACCINE Aged Out No long er eligible based on patient's age to complete this topic Care Teams Patient Flow Coordinator Relationship Specialty Start Date End Date Jovanny Salinas MD [address] [place] [address] PCP - General 01/27/18
--- OUTSIDE RECORDS SUMMARY | 2024-05-13 16:22 | XMS_ITS | Referral Summary ---
Author Organization [facility] Address [address] [place] [phone] Care Team Providers Care Supervisor Travel Information Center Name Role Phone No, Physician Primary Care Provider [phone] Jovanny Salinas MD Unavailable Encounters Date Type Department Care Team Description 04/27/2024 9:15 AM CDT Office Visit [facility] Orthopaedic Surgery [address] [place] [address] 2nd Floor [address] [place] [phone] Zane Porter PA Adhesive capsulitis of left shoulder (Primary Dx) 03/22/2024 8:19 AM DENTAL MOLD MAKER - 03/22/2024 11:59 PM DENTAL MOLD MAKER Hospital Encounter [facility] [address] [place] [id number] Left shoulder pain, unspecified chronicity Discharge Disposition: Discharge to home or self care 03/22/2024 9:00 AM DENTAL MOLD MAKER Office Visit [facility] Orthopaedic Surgery [address] [place] [address] Floor [address] [place] [phone] Zane Porter PA Adhesive capsulitis of left shoulder (Primary Dx); Left shoulder pain, unspecified chronicity from Last 3 Months Allergies Active Allergy Reactions Criticality Noted Date [...] Pain in joint of right shoulder 05/16/2021 Social History Tobacco Use Types Packs/Day Years Used Date Smoking Tobacco: Never Smokeless Tobacco: Never Tobacco Cessation:Counseling Given: Not Answered Comments Unknown Sex and Gender Information Value Date Recorded Sex Assigned at Not on file Legal Sex Female 7:51 AM DENTAL MOLD MAKER Gender Identity Not on file Sexual Orientation Not on file Last Filed Vital Signs Vital Sign Reading Time Taken Comments Blood Pressure - - Pulse - - Temperature - - Respiratory Rate - - Oxygen Saturation - - Inhaled Oxygen Concentration - - Weight 72.6 kg (160 lb) 04/27/2024 9:11 AM CDT Height 160 cm (5' 3 ) 04/27/2024 9:11 AM CDT Body Mass Index 28.34 04/27/2024 9:11 AM CDT Plan of Treatment Not on file Procedures Procedure Name Priority Date/Time Associated Diagnosis Comments XR SHOULDER LEFT 2 OR MORE VIEWS Schedule Routine, Read Routine (OP Routine) 03/22/2024 8:29 AM DENTAL MOLD MAKER Left shoulder pain, unspecified chronicity from Last 3 Months Results * XR Shoulder Left 2 or More Views (03/22/2024 8:29 AM DENTAL MOLD MAKER) Anatomical Region Laterality Modality Upper Extremities, Shoulder Left Comp uted Radiography 03/22/2024 8:41 AM DENTAL MOLD MAKER Impressions 03/22/2024 8:41 AM DENTAL MOLD MAKER Mild left acromioclavicular osteoarthritis. Electronically signed by: Anmol Paez MD Narrative 03/22/2024 8:41 AM DENTAL MOLD MAKER EXAMINATION: XR SHOULDER LEFT 2 OR MORE [...] signed by: Anmol Paez MD Zane ALMAZAN IMG XR PROCEDURES Final Result from Last 3 Months Insurance [place] [id number] [employer] [place] [address] [address], [place] [address] Care Teams Supervisor Travel Information Center Relationship Specialty Start Date End Date No, Physician PCP - General 04/23/23 Jovanny Salinas MD [address] [place] [address] [place] [address] 04/23/23
== END 2024-05-13 15:52 | disposition home or self-care (01) ==
PROVIDERS: PCP Nurse Practitioner; Visit Provider Nurse Practitioner
DX: Z12.31 Encounter for screening mammogram for malignant neoplasm of breast (principal); M81.0 Age-related osteoporosis without current pathological fracture; M85.88 Other specified disorders of bone density and structure, other site; M85.852 Other specified disorders of bone density and structure, left thigh; M85.851 Other specified disorders of bone density and structure, right thigh
CPT/HCPCS: 77063; 77067; 77080

== ENCOUNTER 2024-06-08 13:42 | Emergency (ER) | payer OTHER, SELFPAY ==
[2024-06-08 13:49] VITALS: BP 125/82; PULSE 81; RESP 16; TEMP 36.8; O2SAT 100
--- NOTE | 2024-06-08 14:04 | ED_ITS ---
HPI - General Adult General Chief complaint: Eye Problems Stated complaint: Eye Irriation Source: patient Mode of arrival: ambulatory Limitations: no limitations History of Present Illness HPI narrative: Patient presents for evaluation of right eye irritation. Symptom onset two days ago. She felt like foreign body came into her right eye at the time of symptom onset. She still has the sensation of foreign body in the right eye. She has associated redness. Denies pain, pruritis, change in vision, or drainage from the eye. She wears glasses but not contacts. She used visine and it caused some burning. Related Data Home Medications ?Medication ?Instructions ?Recorded ?Confirmed ?Last Taken ?Type multivit with minerals-iron 18 1 tablet PO DAILY 11/03/23 05/13/24 11/20/23 History mg-folic ac 400 mcg-vit K 25 mcg tablet (Adults Multivitamin) Allergies Allergy/AdvReac Type Severity Reaction Status Date / Time clindamycin Allergy Unknown Chest pain Verified 06/08/24 13:50 Quinolones Allergy Unknown Unknown Verified 06/08/24 13:50 Review of Systems Review of Systems: CONSTITUTIONAL: Denies fever, chills, or sweats. EYES: reports sensation of foreign body in the right eye. Reports redness to the right eye. Denies visual changes, discharge, pain or itching. ENT: Denies rhinorrhea, congestion, sore throat, or otalgia. CARDIOVASCULAR: Denies chest pain, palpitations, or edema. RESPIRATORY: Denies cough or dyspnea. GASTROINTESTINAL: Denies abdominal pain, nausea, vomiting, or diarrhea. GENITOURINARY: Denies dysuria or hematuria. SKIN: Denies rash or itching. MUSCULOSKELETAL: Denies back pain, joint pain, or myalgia. NEUROLOGIC: Denies headache, numbness, dizziness, or weakness. PSYCHIATRIC: Denies anxiety or depression. [facility] Past Medical History Medical History COVID-19 Torn rotator cuff Hyperlipidemia Screening for lipid disorders Vaginal delivery 09/26/83 Full term female 5lbs 2oz Migraines Osteoporosis Benign essential hypertension Surgical History Surgical History S/P rotator cuff repair Right 08/29/21 H/O dilation and curettage H/O myomectomy H/O: hysterectomy History of colposcopy History of cryosurgery Family History Family History Father Hypertension Family history of diabetes mellitus in first degree relative Mother Hypertension Family history of diabetes mellitus in first degree relative Sibling Hypertension Family history of diabetes mellitus in first degree relative Grandparent Hypertension Cerebrovascular accident Acute myocardial infarction Other Asthma Other Diabetes mellitus Family history of heart disease in male family member before age 55 Social History Social History Smoking status: Never smoker Second hand tobacco smoke exposure: No Alcohol intake: current Drinks per week: 1 Alcohol use details: occasionally Substance use: never Substance use type: does not use Lack of Transportation: No Lack of Food: Never True Current Housing: I Have Housing Concerned About Future Housing: No Difficulty Paying Gas/Electric Bills: No Difficulty Paying for Meds: No Currently Unemployed: No Education: Trade/Vocational Certificate Difficulty w/ Childcare or Family Care: No Living arrangements: with family Additional living arrangements comments: Boyfriend Occupation/Education: occupation Gender identity (if verbalized by the patient): Female Sexual Orientation (if Verbalized by the Patient): Straight or Heterosexual Spiritual care concerns: No Exam Narrative: GENERAL: Well-appearing, well-nourished, and in no acute distress. HEAD: Normocephalic, atraumatic. EYES: PERRLA and EOMI. There is right conjunctival injection. No drainage. There is an area of dye uptake at the 3 o'clock position of the right eye adjacent to the iris when evaluated with fluorescein and Wood's lamp ENT: Nares clear, no rhinorrhea or epistaxis. Mucous membranes moist. Oropharynx without tonsillar hypertrophy exudate or other lesions. Bilateral TMs pearly rosa nonbulging NECK: Supple. No adenopathy or masses. No carotid bruits or JVD CHEST: Clear to auscultation. No respiratory distress. No wheezes rales or rhonchi HEART: Regular rate and rhythm. No murmur heard. Normal peripheral pulses. ABDOMEN: Soft, nontender, nondistended, normal active bowel sounds. EXTREMITIES: Normal range of motion. No edema. SKIN: Warm, dry, no rash. NEURO: No focal deficits. Alert and oriented x3. PSYCH: Normal mood and affect. Course Course Emergency Course: This is a 58-year-old female who presented for evaluation of right eye irritation and redness. She has a corneal abrasion noted on exam with retained foreign body. will discharge with erythromycin. Follow-up with primary provider. Go to the ER for worsening symptoms. Pt in agreement with plan of care. Level of Care: Express Care Visit Vital Signs Vital signs: Vital Signs Temperature 36.8 C 06/08/24 13:49 Pulse Rate 81 06/08/24 13:49 Respiratory Rate 16 06/08/24 13:49 Blood Pressure 125/82 06/08/24 13:49 Pulse Oximetry 100 06/08/24 13:49 Temperature 36.8 C 06/08/24 13:49 Pulse Rate 81 06/08/24 13:49 Respiratory Rate 16 06/08/24 13:49 Blood Pressure 125/82 06/08/24 13:49 Pulse Oximetry 100 06/08/24 13:49 Medical Decision Making Vital Signs Vital Signs: Vital Signs Temperature 36.8 C 06/08/24 13:49 Pulse Rate 81 06/08/24 13:49 Respiratory Rate 16 06/08/24 13:49 Blood Pressure 125/82 06/08/24 13:49 Pulse Oximetry 100 06/08/24 13:49 Temperature 36.8 C 06/08/24 13:49 Pulse Rate 81 06/08/24 13:49 Respiratory Rate 16 06/08/24 13:49 Blood Pressure 125/82 06/08/24 13:49 Pulse Oximetry 100 06/08/24 13:49 Discharge Plan Discharge Clinical Impression: Abrasion, corneal Patient Disposition: Home Condition: Stable Instructions: Antibiotic Form, Corneal Abrasion (DC) Patient Language: Portuguese Prescriptions: New erythromycin 5 mg/gram (0.5 %) ointment 0.5 inch EACH EYE QID Qty: 3.5 0RF No Action estradiol 0.5 mg tablet 0.5 mg PO .COMPLEX Qty: 45 4RF Rx Instructions: 0.5 mg PO every 48hours; take one every 48 hours (every other day) valsartan-hydrochlorothiazide 320-12.5 mg tablet See Rx Instructions .ROUTE .COMPLEX Qty: 90 1RF Dose Instruction: TAKE 1 TABLET BY MOUTH DAILY Rx Instructions: TAKE 1 TABLET BY MOUTH DAILY alendronate 70 mg tablet 70 mg PO WEEKLY Qty: 12 2RF Rx Instructions: Take one tab by mouth once weekly with an 8 ounce glass of plain water. Adults Multivitamin 18 mg iron-400 mcg-25 mcg Tablet 1 tablet PO DAILY Follow-up/Referrals: Sienna Blunt MD [Physician] - Time of Disposition: 14:35
== END 2024-06-08 14:37 | disposition home or self-care (01) ==
PROVIDERS: Emergency Provider Nurse Practitioner
DX: S05.01XA Injury of conjunctiva and corneal abrasion without foreign body, right eye, initial encounter (principal); X58.XXXA Exposure to other specified factors, initial encounter; I10 Essential (primary) hypertension; E78.5 Hyperlipidemia, unspecified; M81.0 Age-related osteoporosis without current pathological fracture; Z86.16 Personal history of COVID-19
CPT/HCPCS: 99213; A9270; G0463